=== PATIENT | female | born 1940 | race Caucasian/White ===

== ENCOUNTER 2017-03-12 06:20 | Inpatient (IN) | payer MEDICARE, OTHER ==
[~2017-03-12] VITALS: Ht 160 cm; Wt 54.4 kg
--- NOTE | 2017-03-12 10:30 | NUR ---
Admitted a 77-year old female on 5150 hold for DTO and GD. Patient is alert and oriented x 3. Patient with medical history of dementia, renal failure, UTI, sepsis with psychiatric diagnosis of psychosis. Dr. Rivero and Dr. Leonard notified with admit orders. Patient's right handbook given and explained to patient, patient able to verbalize understanding, V/S stable at this time, bruise on right forearm. Will continue to monitor for any skin changes. All belongings checked in by staff. Start patient on Q15 minutes for safety check.
[2017-03-12 11:00] VITALS: BP 126/48
[2017-03-12] MEDS ORDERED: MAG HYDROX/AL HYDROX/SIMETH 30 ML UDC PO PRN (11:00)
[2017-03-12] MEDS ORDERED: clonazePAM 0.5 MG TABLET PO PRN (11:00)
[2017-03-12] MEDS ORDERED: MAGNESIUM HYDROXIDE 30 ML UDC PO PRN (11:00)
--- NOTE | 2017-03-12 14:58 | NUR ---
RN-CO: Called Dr Christina's office regarding Dr Rivero's neuro consult, spoke with Freda.
[2017-03-12] MEDS: ACETAMINOPHEN 325 MG TABLET PO PRN (15:52)
[2017-03-12] MEDS: QUETIAPINE FUMARATE 25 MG TABLET PO SCH ×2 (15:52→17:55)
[2017-03-12] MEDS: DIVALPROEX SODIUM 125 MG TABLET.DR PO SCH ×2 (15:52→21:15)
[2017-03-12 16:00] VITALS: BP 108/61
[2017-03-13 06:51] LABS: ALANINE AMINOTRANSFERASE 21 U/L (12-78); ALBUMIN 2.9 g/dL (3.4-5.0); ALKALINE PHOSPHATASE 94 U/L (46-116); ASPARTATE AMINOTRANSFERASE 16 U/L (15-37); BILIRUBIN,TOTAL 0.3 mg/dL (0.2-1.0); CALCIUM, SERUM 8.9 mg/dL (8.5-10.1); CARBON DIOXIDE 28 mmol/L (21-32); CHLORIDE 108 mmol/L (98-107); CREATININE 0.6 mg/dL (0.6-1.3); GLUCOSE 90 mg/dL (74-106); POTASSIUM 4.4 mmol/L (3.5-5.1); SODIUM SERUM 140 mmol/L (136-145); TOTAL PROTEIN, SERUM 6.5 g/dL (6.4-8.2); UREA NITROGEN, BLOOD 15 mg/dL (7-18)
[2017-03-13 07:08] LABS: CHOLESTEROL 193 mg/dL (<200); HDL CHOLESTEROL 62 mg/dL (40-60); LDL 116 mg/dL (0-99); TRIGLYCERIDES 90 mg/dL (30-150)
[2017-03-13 08:00] VITALS: BP 101/57
[2017-03-13] MEDS: QUETIAPINE FUMARATE 25 MG TABLET PO SCH ×2 (08:09→17:18)
[2017-03-13] MEDS: DIVALPROEX SODIUM 125 MG TABLET.DR PO SCH ×2 (08:09→21:02)
[2017-03-13] MEDS ORDERED: FOLI1TAB16 PO (08:51)
[2017-03-13] MEDS ORDERED: DONE5TAB34 PO (08:51)
[2017-03-13] MEDS ORDERED: SERT50TA PO (08:51)
--- NOTE | 2017-03-13 12:28 | NUR ---
Initial Discharge Note Patient currently lives with her son, G[address] [address] [place] [address], . Patient does not wish to continue there. Patient states that she is interested in living alone or in a penitentiary. Patient called and spoke to pt's son, Gómez at [phone] and he stated that his mother gets agitated in the house and does not wish to live with them. Gómez stated that he is looking into nursing homes. SW informed, both, Gómez and patient that she will look into places but that it might be difficult due to the low number of medicare-approved SNF days that the patient has [21 co-SNF]. SW will follow up with MD and will work to arrange safe and proper discharge.
[2017-03-13 15:41] VITALS: BP 102/55
[2017-03-13 20:07] VITALS: BP 105/57
[2017-03-13] MEDS: TEMAZEPAM 7.5 MG CAPSULE PO PRN (21:02)
[2017-03-14 08:00] VITALS: BP 109/59
[2017-03-14] MEDS: QUETIAPINE FUMARATE 25 MG TABLET PO SCH ×2 (09:13→17:50)
[2017-03-14] MEDS: DIVALPROEX SODIUM 125 MG TABLET.DR PO SCH ×2 (09:13→22:14)
[2017-03-14 09:47] LABS: BASOPHILS # (AUTO) 0.1 /CMM (0.0-0.2); BASOPHILS % (AUTO) 0.6 % (0.0-2.0); EOSINOPHILS # (AUTO) 0.6 /CMM (0.0-0.7); EOSINOPHILS % (AUTO) 5.7 % (0.0-6.0); HEMATOCRIT 36 % (33-45); HEMOGLOBIN 11.9 g/dL (11.5-14.8); LYMPHOCYTES # (AUTO) 2.5 /CMM (0.8-4.8); LYMPHOCYTES % (AUTO) 25.8 % (20.0-44.0); MEAN CORPUSCULAR HEMOGLOBIN 30 PG (26.0-33.0); MEAN CORPUSCULAR HGB CONC 33 g/dl (31.0-36.0); MEAN CORPUSCULAR VOLUME 90 fL (82-100); MONOCYTES # (AUTO) 0.7 /CMM (0.1-1.30); MONOCYTES % (AUTO) 7.1 % (2.0-12.0); NEUTROPHILS # (AUTO) 5.9 /CMM (1.8-8.9); NEUTROPHILS % (AUTO) 60.8 % (43.0-81.0); PLATELET COUNT (AUTO) 236 /CMM (150-450); RDW COEFFICIENT OF VARIATION 14.2 (11.5-15.0); WHITE BLOOD COUNT (AUTO) 9.7 K/uL (4.3-11.0)
[2017-03-14 10:08] LABS: CALCIUM, SERUM 9.6 mg/dL (8.5-10.1); CARBON DIOXIDE 28 mmol/L (21-32); CHLORIDE 107 mmol/L (98-107); CREATININE 0.7 mg/dL (0.6-1.3); GLUCOSE 104 mg/dL (74-106); POTASSIUM 4.4 mmol/L (3.5-5.1); SODIUM SERUM 142 mmol/L (136-145); UREA NITROGEN, BLOOD 17 mg/dL (7-18)
--- NOTE | 2017-03-14 11:06 | NUR ---
RADHA faxed over inquiry to [facility], fax number [phone]. Addendum: 03/14/17 at 1320 by JAIME GARCIA Please note this was [facility]. The patient was accepted at [facility]. But RADHA left a voicemail for family indicating that she will also fax over to [facility], which she did.
--- NOTE | 2017-03-14 13:19 | NUR ---
RADHA faxed over an inquiry to [facility],
[2017-03-14 16:00] VITALS: BP 112/56
[2017-03-14 20:00] VITALS: BP 117/67
--- NOTE | 2017-03-14 23:59 | NUR ---
GPS/RN PATIENT IS SLEEPING AT THIS TIME, AROUSABLE, APPEAR COMFORTABLE, NO SIGNS OF DISTRESS NOTED, CALL LIGHT IN REACH. WILL CONTINUE TO MONITOR.
--- NOTE | 2017-03-15 06:06 | NUR ---
GPS/RN SLEEPING, COMFORTABLE, NO DISTRESS NOTED, ALL NEEDS ATTENDED AT THIS TIME. WILL CONTINUE TO MONITOR.
[2017-03-15 08:00] VITALS: BP 109/63
[2017-03-15] MEDS: DIVALPROEX SODIUM 125 MG TABLET.DR PO SCH ×2 (08:26→21:48)
[2017-03-15] MEDS: QUETIAPINE FUMARATE 25 MG TABLET PO SCH ×3 (08:26→16:51)
[2017-03-15 09:39] LABS: APPEARANCE,URINE SL CLOUDY (CLEAR); BILIRUBIN,URINE NEGATIVE (NEGATIVE); BLOOD, URINE TRACE-INTA Ery/uL (NEGATIVE); COLOR,URINE YELLOW (YELLOW); KETONES,URINE NEGATIVE (NEGATIVE); LEUKOCYTE ESTERASE ,URINE NEGATIVE (NEGATIVE); NITRITE, URINE NEGATIVE (NEGATIVE); PROTEIN,URINE NEGATIVE (NEGATIVE); UGLUCOSE NEGATIVE (NEGATIVE); UROBILINOGEN,URINE 0.2 EU/dL (0.2)
[2017-03-15 09:56] LABS: BACTERIA,URINE Rare /HPF (None Seen); SQUAMOUS EPITHELIAL CELL,UR Few /HPF (None Seen); WBC,URINE 0-2 /HPF (0-3)
--- NOTE | 2017-03-15 10:08 | NUR ---
SW spoke with patient who affirmed that she did not want to go back home with son and instead wished to be placed in a nursing facility. RADHA followed up with Lucas, receiving coordinator at [facility] who stated that the packet is in the process of review and that he will call once a decision has been reached.
--- NOTE | 2017-03-15 10:17 | NUR ---
RADHA faxed over inquiry to [facility] [phone]- [facility] [phone] / - [phone] Louie Root [phone] / [phone]
--- NOTE | 2017-03-15 10:25 | NUR ---
SW spoke with pt's son, Gómez who stated he would like his mother in the [facility] area. He stated that [facility] in [place] is a last resort, but is not ruling it out.
--- NOTE | 2017-03-15 11:19 | NUR ---
SW spoke with Silvia [conor?] Joesph who informed SW that she was form the [facility]. She stated that pt's son, Gómez, had filed for conservatorship. Patient's court day is scheduled for March 20. She stated that she has to have a face to face with the patient and is on her way to the hospital. Addendum: 03/15/17 at 1121 by JAIME GARCIA Ms. Pink's phone number is [phone]
--- NOTE | 2017-03-15 11:42 | NUR ---
Clare Pink from the [place] [facility] came in to the unit to meet with patient. She later requested a face sheet, which RADHA provided. Clare's phone is: [phone] and cell is [phone]. SW was provided with a business card and will follow up with Clare and with family. Clare once again stated that the court was next Sunday on Mar 20 and advised that patient be there around 8:30am.
--- NOTE | 2017-03-15 13:00 | NUR ---
WORLD GEOGRAPHY TEACHER-NOTES FIELD CONTROL INSPECTOR HAILY WAS MADE AWARE OF PATIENT MEDS. NEED TO RECONCILE.
--- NOTE | 2017-03-15 14:11 | NUR ---
RADHA followed up with: [facility] and [facility] [phone]- Per admissions, patient has no medical eligibility, DECLINED [facility] [phone] / F- [phone] DECLINED Per Lucas, no bed availability -> Lucas works for [facility] and [facility]...SW spoke with him and he said neither of the facilities have a bed available. [facility] [phone] / [phone] PENDING, RADHA left message with Gayatri for admissions to call back
--- NOTE | 2017-03-15 14:35 | NUR ---
RADHA received a call from August in admissions at [facility]. August stated that she spoke to the son and he seems to have an issue with the patient going to a locked SNF. However, Angie acknowledged that it is difficult to place patient who have been in a [facility] in "regular SNFs." Angie stated that she would love to take the patient but needs to discuss a few things with the family regarding patient's insurance.
--- NOTE | 2017-03-15 14:45 | NUR ---
RADHA faxed over inquiries to the following the facilities: [facility] [place] [address] [address] / fax [phone] [facility] [address] [facility] / fax [phone]
--- NOTE | 2017-03-15 15:45 | NUR ---
RADHA heard back from Lyndsey from [facility]. She stated that they are interested in patient and will check with radha. Lyndsey stated that she will contact RADHA. RADHA to follow up.
[2017-03-15 16:00] VITALS: BP 109/73
--- NOTE | 2017-03-15 16:26 | NUR ---
At pt's son's [Gómez] request, RADHA faxed over an inquiry to [facility]: [phone] / fax number [phone]
[2017-03-15 20:00] VITALS: BP 116/68
[2017-03-15] MEDS: TEMAZEPAM 7.5 MG CAPSULE PO PRN (21:49)
--- NOTE | 2017-03-15 22:00 | NUR ---
GPS/RN-PATIENT VERBALIZED INABILITY TO SLEEP.NON PHARMACOLOGICAL INTERVENTIONS PROVIDED BUT NOT EFFECTIVE. RESTORIL 7.5MG.GIVEN ORDERED.
[2017-03-16 08:00] VITALS: BP 120/65
[2017-03-16] MEDS: DIVALPROEX SODIUM 125 MG TABLET.DR PO SCH ×2 (08:08→20:15)
[2017-03-16] MEDS: QUETIAPINE FUMARATE 25 MG TABLET PO SCH ×3 (08:08→16:40)
--- NOTE | 2017-03-16 08:20 | NUR ---
SW received a voicemail from Hina at [facility] [address] [address] / fax [phone], who stated that the facility is unable to accept the patient.
--- NOTE | 2017-03-16 09:39 | NUR ---
RADHA called Deyanira from [facility]: [phone] / fax number [phone]. Deyanira stated that the patient had been at their facility before and that they are interested in taking her back. Deyanira stated that she needs to follow up with pt's son regarding the plan for aftercare, if the stay in long or short term. Deyanira stated that once she speaks with the son, then she will call RADHA back, either towards the end of the day today or on Sunday. If RADHA does hear from Deyanira on Sunday, she will follow up.
--- NOTE | 2017-03-16 13:38 | NUR ---
RADHA received a call from Clare Pink, probate investigator internal affairs [phone]. She inquired about a diagnosis of dementia for patient, and asked if the psychiatrist could call her directly. RADHA spoke with Dr. Rivero in person and asked him to call Ms. Pink. RADHA provided him with contact information.
--- NOTE | 2017-03-16 14:19 | NUR ---
RADHA spoke with travis's son, Gómez [phone], who stated that he was in touch with Deyanira from [facility]. He stated that it was the facility that was most appealing to him because his mother had been there before and is familiar with it. RADHA then called Deyanira [phone] from [facility] and asked if the patient had been accepted. Deyanira stated that "things look good" but that she has to speak with her don to sort out the details. Deyanira stated that the don is in a meeting and that she will call SW back as soon as she finds out any information. RADHA stated that the doctor is looking to discharge patient on Sunday and Deyanira said she will follow up before then.
--- NOTE | 2017-03-16 14:24 | NUR ---
RADHA received a call from Lyndsey from [facility], who stated that they are also interested in accepting patient. Lyndsey stated that Sunday will be fine for discharge. RADHA stated that she has to follow up with pt's family and will call Lyndsey on Sunday morning. RADHA informed pt's son, Gómez, that there are multiple accepting facilities. Gómez stated that he is most interested in [facility], but is open to others if it does not work out. Patient does not have a preference of facility, when asked by RADHA
[2017-03-16 16:00] VITALS: BP 113/65
[2017-03-16 20:00] VITALS: BP 101/61
[2017-03-16] MEDS: DONEPEZIL 5 MG TABLET PO SCH (21:31)
[2017-03-16] MEDS: ACETAMINOPHEN 325 MG TABLET PO PRN (21:32)
[2017-03-16] MEDS: TEMAZEPAM 7.5 MG CAPSULE PO PRN (22:36)
[2017-03-17 08:00] VITALS: BP 112/51
[2017-03-17] MEDS: DIVALPROEX SODIUM 125 MG TABLET.DR PO SCH ×2 (08:23→21:49)
[2017-03-17] MEDS: QUETIAPINE FUMARATE 25 MG TABLET PO SCH ×3 (08:23→16:43)
[2017-03-17 16:15] VITALS: BP 136/69
[2017-03-17] MEDS: LIDOCAINE 5% (PATCH) 1 EA PATCH TP SCH (16:43)
[2017-03-17] MEDS: DONEPEZIL 5 MG TABLET PO SCH (21:49)
[2017-03-17] MEDS: TEMAZEPAM 7.5 MG CAPSULE PO PRN (21:49)
[2017-03-18] MEDS: QUETIAPINE FUMARATE 25 MG TABLET PO SCH ×3 (07:52→16:20)
[2017-03-18] MEDS: DIVALPROEX SODIUM 125 MG TABLET.DR PO SCH ×2 (07:52→20:32)
[2017-03-18 08:00] VITALS: BP 109/58
[2017-03-18 15:25] VITALS: BP 93/51
[2017-03-18] MEDS: LIDOCAINE 5% (PATCH) 1 EA PATCH TP SCH (16:20)
--- NOTE | 2017-03-18 19:30 | NUR ---
RN NOTE; RECEIVED POT IN BED ALERT AND RESPONSIVE. FAMILY AT THE BED SIDE. PT REPORTED FEELING MUCH BETTER. ABLE TO SLEEP AT NIGHT. NO COMBATIVE BEHAVIOR. NO C/O PAIN OR DISCOMFORT. NO VERBALIZATION OF SADNESS OR SUICIDE. WILL CONT TO MONITOR.
[2017-03-18 20:00] VITALS: BP 111/64
[2017-03-18 20:21] VITALS: BP 111/64
[2017-03-18] MEDS: ACETAMINOPHEN 325 MG TABLET PO PRN (20:33)
--- NOTE | 2017-03-18 20:33 | NUR ---
TYLENOL GIVEN PER PT'S REQUEST ORDERED FOR C/O LOWER BACK PAIN. WILL CONT TO MONITOR,
[2017-03-18] MEDS: DONEPEZIL 5 MG TABLET PO SCH (21:30)
--- NOTE | 2017-03-19 06:36 | NUR ---
RN NOTE; PT IN BED SLEEPING, AROUSES EASILY. PT REMAINED COMPLIANT W/ MED AND POC . NO PSYCH OR BEHAVIORAL ISSUES NOTED. NO C/O PAIN OR DISCOMFORT , NEEDS ATTENDED. BED LOW LOCKED .WILL CONT TO MONITOR AND WILL ENDORSE TO AM SHIFT FOR CHRISTOPHER .
[2017-03-19 08:00] VITALS: BP 110/58
[2017-03-19] MEDS: DIVALPROEX SODIUM 125 MG TABLET.DR PO SCH ×2 (09:05→21:11)
[2017-03-19] MEDS: QUETIAPINE FUMARATE 25 MG TABLET PO SCH ×3 (09:06→17:01)
--- NOTE | 2017-03-19 09:41 | NUR ---
RADHA spoke with Clare Pink, probate revenue investigator [phone]. Clare informed RADHA that pt's conservatorship hearing was scheduled for tomorrow, 03/20/17 at 10:30am at [address] [place] [address]. Clare emailed a confirmation regarding the hearing, which RADHA printed out and provided to nurses. RADHA also spoke with patient's son, Gómez, who confirmed the hearing as well and received an update about his mother's well-being.
--- NOTE | 2017-03-19 09:45 | NUR ---
RADHA spoke with Noy from [facility] at [phone] and informed her that patient will not be discharged today, but that SW will let her know once a discharge is set [a day or so from now]. Noy stated that "it is not a problem"
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
[2017-03-19] MEDS: LIDOCAINE 5% (PATCH) 1 EA PATCH TP SCH (15:55)
[2017-03-19 16:46] VITALS: BP 112/73
--- NOTE | 2017-03-19 19:30 | NUR ---
GPS RN NOTE, RECEIVED PATIENT AWAKE AND IN BED NO S/S OR COMPLAINTS OF PAIN AT THIS TIME. PATIENT IS DISPLAYING NO S/S OF APPARENT DISTRESS AT THIS TIME. PATIENT BREATHING IS UNLABORED WITH EQUAL RISE AND FALL OF THE CHEST. PATIENT IS ALERT AND ORIENTED X1 ON ROOM AIR WITH A SPOO2 98 %. PATIENT IS MED COMPLIANT, ISOLATIVE, COOPERATIVE, DISORGANIZED, AND NEEDS REORIENTATION. PATIENT DENIES SUICIDE IDEATIONS AND HOMICIDAL IDEATIONS AT THIS TIME. PATIENT ASSISTED WITH TURNING AND REPOSITIONING Q2HR AND PRN FOR COMFORT AND CIRCULATION. PATIENT HAS NO NEEDS AT THIS TIME. PATIENT EDUCATED ON THE USE OF THE CALL CARRANZA. PATIENT BED SIDE RAILS UP X 2 FOR SAFETY. PATIENT BED IS LOCKED AND LOW WILL CONTINUE TO MONITOR AND MAINTAIN SAFETY Q15 MIN WITH THE HELP OF STAFF.
[2017-03-19 20:39] VITALS: BP 136/68
[2017-03-19] MEDS: DONEPEZIL 5 MG TABLET PO SCH (21:11)
[2017-03-19] MEDS: ACETAMINOPHEN 325 MG TABLET PO PRN (21:19)
--- NOTE | 2017-03-19 21:19 | NUR ---
GPS RN NOTE, PATIENT HAS A COMPLAINT OF LOWER BACK PAIN ON A SCALE OF 0 TO 10 AND 10 IS THE WORST PAIN IMAGINABLE. PATIENT OFFERED 3 OUT OF 10. PT IS REQUESTING FOR TYLENOL. GAVE TYLENOL 650MG PO PRN ORDERED. WILL CONTINUE TO ASSESS FOR ANY S/SX OF PAIN.
[2017-03-20 06:53] LABS: BASOPHILS # (AUTO) 0.1 /CMM (0.0-0.2); BASOPHILS % (AUTO) 0.5 % (0.0-2.0); EOSINOPHILS # (AUTO) 0.6 /CMM (0.0-0.7); EOSINOPHILS % (AUTO) 5.3 % (0.0-6.0); HEMATOCRIT 37 % (33-45); HEMOGLOBIN 12.3 g/dL (11.5-14.8); LYMPHOCYTES # (AUTO) 3.8 /CMM (0.8-4.8); LYMPHOCYTES % (AUTO) 35.8 % (20.0-44.0); MEAN CORPUSCULAR HEMOGLOBIN 30 PG (26.0-33.0); MEAN CORPUSCULAR HGB CONC 34 g/dl (31.0-36.0); MEAN CORPUSCULAR VOLUME 91 fL (82-100); MONOCYTES % (AUTO) 9.7 % (2.0-12.0); NEUTROPHILS # (AUTO) 5.2 /CMM (1.8-8.9); NEUTROPHILS % (AUTO) 48.7 % (43.0-81.0); PLATELET COUNT (AUTO) 221 /CMM (150-450); RDW COEFFICIENT OF VARIATION 14.5 (11.5-15.0); RED BLOOD CELL COUNT(AUTO) 4.06 MIL/uL (4.0-5.2); WHITE BLOOD COUNT (AUTO) 10.6 K/uL (4.3-11.0)
[2017-03-20 07:01] LABS: CALCIUM, SERUM 9.4 mg/dL (8.5-10.1); CARBON DIOXIDE 30 mmol/L (21-32); CHLORIDE 108 mmol/L (98-107); CREATININE 0.7 mg/dL (0.6-1.3); GLUCOSE 86 mg/dL (74-106); POTASSIUM 4.9 mmol/L (3.5-5.1); SODIUM SERUM 145 mmol/L (136-145); UREA NITROGEN, BLOOD 19 mg/dL (7-18)
[2017-03-20 08:00] VITALS: BP 123/78
[2017-03-20] MEDS: QUETIAPINE FUMARATE 25 MG TABLET PO SCH ×3 (08:27→18:26)
[2017-03-20] MEDS: DIVALPROEX SODIUM 125 MG TABLET.DR PO SCH ×2 (08:27→21:14)
[2017-03-20 16:08] VITALS: BP 109/60
[2017-03-20] MEDS: LIDOCAINE 5% (PATCH) 1 EA PATCH TP SCH (16:49)
[2017-03-20 20:57] VITALS: BP 117/65
[2017-03-20] MEDS: DONEPEZIL 5 MG TABLET PO SCH (21:14)
[2017-03-20] MEDS: TEMAZEPAM 7.5 MG CAPSULE PO PRN (21:20)
[2017-03-21 08:00] VITALS: BP 128/61
[2017-03-21] MEDS: QUETIAPINE FUMARATE 25 MG TABLET PO SCH (08:48)
[2017-03-21] MEDS: DIVALPROEX SODIUM 125 MG TABLET.DR PO SCH (08:49)
--- NOTE | 2017-03-21 09:38 | NUR ---
RN-CO: DR FLORES GAVE AN ORDER TO DISCONTINUE HOLD AND DISCHARGE PATIENT TO SNF. PT DENIED SUICIDAL AND HOMICIDAL IDEATION, DENIED AUDITORY AND VISUAL HALLUCINATIONS. CALM AND COOPERATIVE TO CARE. V/S: 128/61, 98, 20,80,95%.0/10.
--- NOTE | 2017-03-21 10:04 | NUR ---
Discharge Note Patient will be discharged to [facility] [address] [place] [address] via ambulance at 11am. Patients son, Gómez [phone], is aware of the discharge plan and is in agreement. Please note that Gómez was granted conservatorship at a hearing on March 20, 2017. He has visited [facility] and has approved the facility for his mother. The patient is happy with placement at [facility]. Patient will be seen by her cheesemaker, Dr. Li [address] [place] [address] [phone] on Sunday, 03/27 at 10am. Patient will be seen by her psychiatrist, Dr. Juárez [address], [place] [address] [phone] on Sunday, 03/23 at 1pm. Patient is not a smoker and does not struggle with alcohol/substance use.
--- NOTE | 2017-03-21 10:45 | NUR ---
RN-CO: ALL BELONGINGS AND VALUABLES WERE GIVEN BACK TO THE PATIENT. JAZZY DOUGHERTY PRIMARY NURSE GAVE THE REPORT TO RN RECEIVING THE PATIENT TO SNF.PATIENT WAS PICKED UP BY AMBULANCE.GEORGE CARDENAS NP MADE AWARE OF HER DISCHARGE.
--- NOTE | 2017-03-21 11:00 | NUR ---
DOOR MAKER NOTE :PATIENT ALERT ,VERBALLY RESPONSIVE ,DENIES SI/HI/AVH ,VS STABLE ,ALL BELONGINGS RETURNED TO PATIENT. AND THERESA VENEER JOINER NOTIFIED WITH DISCHARGE ORDERS . REPORT GIVEN TO IGOR DOUGHERTY IN [facility] PATIENT DISCHARGE WITH AMBULANCE .
== END 2017-03-21 11:00 | DRG 885 ==
LOC: GPS 10:23
PROVIDERS: ADMIT Psychiatry & Neurology Psychiatry; ATTEND Family Medicine
DX: F39 Unspecified mood [affective] disorder (principal); G93.40 Encephalopathy, unspecified; E44.0 Moderate protein-calorie malnutrition; E88.09 Other disorders of plasma-protein metabolism, not elsewhere classified; F03.91 Unspecified dementia, unspecified severity, with behavioral disturbance; F23 Brief psychotic disorder; G89.29 Other chronic pain; Z68.21 Body mass index [BMI] 21.0-21.9, adult
CPT/HCPCS: 36415; 70450-TC; 80048-TC; 80053-TC; 80061-TC; 81000-TC; 84443-TC; 85025-TC; 87081-TC; 87086-TC